=== PATIENT | male | born 1995 | race African-American/Black ===

== ENCOUNTER 2017-07-04 06:00 | Emergency (ER) | payer OTHER ==
[~2017-07-04] VITALS: Ht 175.3 cm; Wt 99.1 kg
[2017-07-04] MEDS ORDERED: MORPHINE 4 MG/ML 1ML SYRINGE IV ONE (06:15)
[2017-07-04] MEDS ORDERED: NS 1,000 ML IV ONE (06:15)
[2017-07-04] MEDS ORDERED: METOCLOPRAMIDE INJ 10MG/2ML VIAL (J2765) IV ONE (06:15)
[2017-07-04] MEDS ORDERED: GASTROGRAFIN SOLUTION 30ML PO ONE (06:20)
[2017-07-04] MEDS ORDERED: GASTROGRAFIN SOLUTION 30ML (Q9963) As Ordered ONE (06:22)
[2017-07-04 06:29] LABS: MEAN CORPUSCULAR HEMOGLOBIN 30.9 pg (27.0-33.0); MEAN CORPUSCULAR HGB CONC 34.9 g/dl (32.0-36.5); MEAN CORPUSCULAR VOLUME 88.5 fl (80.0-96.0); PLATELET COUNT, AUTOMATED 188 10^3/uL (150-450); WHITE BLOOD COUNT 5.8 10^3/uL (4.0-10.0)
[2017-07-04 06:39] LABS: ADD MANUAL DIFFER YES; DIFF SLIDE NUMBER 109; POSITIVE MORPH POS FLAG
[2017-07-04] MEDS ORDERED: GASTROGRAFIN SOLUTION 30ML (Q9963) PO ONE (06:50)
[2017-07-04 06:58] LABS: BANDS 3 % (< 11)
[2017-07-04 07:00] LABS: ALBUMIN 3.8 GM/DL (3.2-5.2); ALBUMIN/GLOBULIN RATIO 0.93 (1.00-1.93); ALKALINE PHOSPHATASE 64 U/L (45-117); ALT/SGPT 77 U/L (12-78); AMYLASE 60 U/L (25-115); ANION GAP 7 MEQ/L (8-16); AST/SGOT 83 U/L (7-37); BILIRUBIN,DIRECT < 0.1 MG/DL (0.0-0.2); BILIRUBIN,TOTAL 0.3 MG/DL (0.2-1.0); BLOOD UREA NITROGEN 13 MG/DL (7-18); CARBON DIOXIDE LEVEL 26 MEQ/L (21-32); CHLORIDE LEVEL 107 MEQ/L (98-107); CREATININE FOR GFR 1.12 MG/DL (0.70-1.30); GLOMERULAR FILTRATION RATE > 60.0 (>60); GLUCOSE, FASTING 97 MG/DL (70-105); POTASSIUM SERUM 4.2 MEQ/L (3.5-5.1); SODIUM LEVEL 140 MEQ/L (136-145); TOTAL PROTEIN 7.9 GM/DL (6.4-8.2)
[2017-07-04] MEDS ORDERED: ISOVUE-370 76% 100ML VIAL (Q9967) As Ordered ONE (07:42)
[2017-07-04] MEDS ORDERED: METAL LOCK LOOP XX ONE (07:51)
--- NOTE | 2017-07-04 09:02 | REP ---
Clinical: Right lower quadrant pain. Technique: Axial contrast enhanced images from the lung bases to the pubic symphysis using 100 ml Isovue 370 intravenous contrast material with coronal and sagittal re-formations. Findings: Mildly prominent lymph nodes throughout the mesentery and extending to the right lower quadrant suggest the possibility of mesenteric adenitis. The small and large bowel is fluid-filled which may reflect associated enterocolitis. The appendix is normal and no perienteric stranding is otherwise appreciated. No evidence for bowel obstruction, free fluid or free air. Liver, spleen, pancreas, gallbladder, bilateral adrenal glands and kidneys are normal. Pelvis demonstrates normal bladder and age appropriate prostate/seminal vesicles. No ascites. No retroperitoneal adenopathy. Abdominal aorta and vasculature appears normal. Musculoskeletal structures are intact. Lung bases are clear. Impression: Findings suggesting acute mesenteric adenitis and/or mild enterocolitis. Signed by Kermit Merritt MD 07/04/2017 08:54 A
[2017-07-04] MEDS ORDERED: ZOFR4TAB3 PO (09:04)
[2017-07-04 09:58] VITALS: BP 125/61
[2017-07-04] MEDS ORDERED: ACETAMINOPHEN TAB 650MG DOSE (2X325MG) PO ONE (10:00)
== END 2017-07-04 10:00 | disposition home or self-care (01) ==
LOC: M ED 06:00
DX: R19.7 Diarrhea, unspecified (principal); R50.9 Fever, unspecified; K52.9 Noninfective gastroenteritis and colitis, unspecified; R11.0 Nausea
CPT/HCPCS: 36415; 74177; 80048; 80076; 82150; 83690; 85025; 87186; 87507; 96361; 96374; 96375; 99284; J2765; Q9963; Q9967

== ENCOUNTER 2017-10-20 13:46 | Emergency (ER) | payer OTHER | END 2017-10-20 18:14 | disposition left against medical advice (07) | LOC: M ED 13:46 | DX: Z53.21 Procedure and treatment not carried out due to patient leaving prior to being seen by health care provider (principal) ==